=== PATIENT | female | born 1990 | race Caucasian/White ===

== ENCOUNTER 2017-04-22 10:10 | Emergency (ER) | payer BC ==
[2017-04-22] MEDS ORDERED: Sodium Chloride 0.9% 10 ML Syringe FLUSH PRN (11:24)
[2017-04-22] MEDS ORDERED: Alum Hydrox/Mag Hydrox/Simeth 30 ML, Lidocaine 2% 15 ML PO ONE ×2 (11:24)
[2017-04-22] MEDS ORDERED: Pantoprazole 40 MG Vial IVPUSH ONE (11:24)
[2017-04-22] MEDS ORDERED: Ondansetron 4 MG/2 ML SDV IVPUSH ONE (11:24)
[2017-04-22] MEDS ORDERED: Sodium Chloride 0.9% 1,000 ML IV SCH (11:30)
--- NOTE | 2017-04-22 11:32 | EDM.PDOC ---
ED HPI GENERAL MEDICAL PROBLEM - General Stated Complaint: BLACK STOOLS Time Seen by Provider: 04/22/17 11:10 Source of Information: Reports: Patient History Limitations: Reports: No Limitations - History of Present Illness INITIAL COMMENTS - FREE TEXT/NARRATIVE: the patient is a 26-year-old female who presents to the ED complaining of nausea , epigastric pain, poor appetite, and black stools. Patient states this past Tuesday she developed flulike symptoms with vomiting, nausea, and diarrhea. States on Tuesday the vomiting subsided but she remained nauseated with a poor appetite. States epigastric pain has persisted. describes as being constant with waxing and waning intensity with eating or drinking. Yesterday developed black stools with intermittent dizziness. She's had no presyncope or syncopal episodes. States initially she believes she had acid reflux. This subsided quickly. With taking Pepto-Bismol. She does utilize ibuprofen 800 mg once to two times a day for chronic back discomfort secondary to scoliosis. She has done this for quite some time. She did take Tylenol this morning with minimal relief. Currently the pain to her epigastric region is a 7/10. In addition she's currently on her menstrual cycle and has somewhat lower abdominal cramping with vaginal bleeding. No abnormalities noted. She denies being . She is sexually acitive and is not on any contraceptives. Patient has no additional past medical history nor is taking any medications other than [id number]. She denies any surgical history as well. Onset Date: 04/19/17 Duration: Constant, Waxing/Waning Location: Reports: Abdomen Quality: Reports: Ache, Pressure Severity: Moderate Improves with: Reports: None Worsens with: Reports: Eating, Other (palpation) Context: Denies: Sick Contact Associated Symptoms: Reports: Loss of Appetite, Malaise, Nausea/Vomiting. Denies: Chest Pain, Fever/Chills, Headaches, Shortness of Breath, Syncope, Weakness Treatments PROBATION SUPERVISOR: Reports: Acetaminophen, NSAIDS Middle Abdominal Pain Score (Numeric/FACES): 8 - Related Data Allergies Allergy/AdvReac Type Severity Reaction Status Date / Time No Known Allergies Allergy Verified 04/01/15 11:37 Home Meds: Home Meds Ondansetron [Zofran ODT] 4 mg PO Q6H PRN #10 tab.dis 04/22/17 [Rx] Sucralfate [Carafate] 1 gm PO QIDACANDBED #20 tablet 04/22/17 [Rx] Past Medical History - Past Surgical History Other Female Surgeries/Procedures: heavy and paiinful menstraul cycles Social & Family History - Tobacco Use Smoking Status *Q: Never Smoker - Recreational Drug Use Recreational Drug Use: No ED ROS GENERAL - Review of Systems Review Of Systems: See Below Constitutional: Reports: Malaise, Fatigue, Decreased Appetite. Denies: Fever, Chills Respiratory: Denies: Shortness of Breath, Cough, Sputum, Hemoptysis Cardiovascular: Denies: Chest Pain, Dyspnea on Exertion, Palpitations, PND, Syncope GI/Abdominal: Reports: Abdominal Pain, Black Stool, Diarrhea, Decreased Appetite , Nausea, Vomiting. Denies: Bloody Stool, Constipation, Distension, Flatus, Hematemesis, Melena : Reports: Other (currently on menses). Denies: Dysuria Musculoskeletal: Reports: Back Pain (chronic,history of scoliosis ) Skin: Reports: No Symptoms Neurological: Reports: Dizziness (intermittent with body position changes). Denies: Headache, Numbness, Syncope, Tingling ED EXAM, GI/ABD - Physical Exam Exam: See Below Exam Limited By: No Limitations General Appearance: Alert, WD/WN, No Apparent Distress Eyes: Bilateral: Normal Appearance Ears: Hearing Grossly Normal Nose: Normal Inspection Throat/Mouth: Normal Inspection, Normal Oropharynx, Normal Voice, No Airway Compromise Neck: Normal Inspection, Supple Respiratory/Chest: No Respiratory Distress, Lungs Clear, Normal Breath Sounds Cardiovascular: Normal Peripheral Pulses, Regular Rate, Rhythm GI/Abdominal: Normal Bowel Sounds, Soft, No Organomegaly, No Distention, Tenderness (epigastric). No: McBurney's Sign, Carrillo's Sign Back Exam: Normal Inspection. No: CVA Tenderness (L), CVA Tenderness (R) Extremities: Normal Inspection Neurological: Alert, Oriented, CN II-XII Intact, Normal Cognition Psychiatric: Normal Affect, Normal Mood Skin Exam: Warm, Dry, Intact, Normal Color Course - Vital Signs Last Recorded V/S: Last Vital Signs Temp 98.2 F 04/22/17 12:01 Pulse 80 04/22/17 12:01 Resp 16 04/22/17 12:01 BP 118/74 04/22/17 12:01 Pulse Ox 99 04/22/17 12:01 - Orders/Labs/Meds Orders: Active Orders 24 hr Category Date Time Status Fecal Occult Blood Collection [RC] ASDIRECTED Care 04/22/17 12:30 Active Peripheral IV Care [RC] . DIRECTED Care 04/22/17 11:25 Active Peripheral IV Insertion Adult [OM.PC] Stat Oth 04/22/17 11:24 Ordered Labs: Laboratory Tests 04/22/17 04/22/17 04/22/17 Range/Units 11:56 11:56 12:10 WBC 7.39 (3.98-10.04) K/mm3 RBC 4.72 (3.98-5.22) M/mm3 Hgb 11.7 (11.2-15.7) gm/L Hct 37.9 (34.1-44.9) % MCV 80.3 (79.4-94.8) fl MCH 24.8 L (25.6-32.2) pg MCHC 30.9 L (32.2-35.5) g/dl RDW Std Deviation 46.8 H (36.4-46.3) fL Plt Count 328 (182-369) K/mm3 MPV 9.5 (9.4-12.3) fl Neut % (Auto) 79.3 H (34.0-71.1) % Lymph % (Auto) 15.2 L (19.3-51.7) % Gray % (Auto) 4.5 L (4.7-12.5) % Eos % (Auto) 0.8 (0.7-5.8) Baso % (Auto) 0.1 (0.1-1.2) % Neut # (Auto) 5.86 (1.56-6.13) K/mm3 Lymph # (Auto) 1.12 L (1.18-3.74) K/mm3 Gray # (Auto) 0.33 (0.24-0.36) K/mm3 Eos # (Auto) 0.06 (0.04-0.36) K/mm3 Baso # (Auto) 0.01 (0.01-0.08) K/mm3 Sodium (136-145) mEq/L Potassium (3.5-5.1) mEq/L Chloride (98-107) mEq/L Carbon Dioxide (21-32) mEq/L Anion Gap (5-15) BUN (7-18) mg/dL Creatinine (0.55-1.02) mg/dL Est Cr Clr Drug Dosing mL/min Estimated GFR (MDRD) (>60) mL/min BUN/Creatinine Ratio (14-18) Glucose (74-106) mg/dL Calcium (8.5-10.1) mg/dL Total Bilirubin (0.2-1.0) mg/dL AST (15-37) U/L ALT (14-59) U/L Alkaline Phosphatase (46-116) U/L C-Reactive Protein (<1.0) mg/dL Total Protein (6.4-8.2) g/dl Albumin (3.4-5.0) g/dl Globulin gm/dL Albumin/Globulin Ratio (1-2) Lipase (73-393) U/L Urine Color Yellow (Yellow) Urine Appearance Clear (Clear) Urine pH 6.0 (5.0-8.0) Ur Specific [place] 1.020 (1.005-1.030) Urine Protein Negative (Negative) Urine Glucose (UA) Negative (Negative) Urine Ketones Negative (Negative) Urine Occult Blood 2+ H (Negative) Urine Nitrite Negative (Negative) Urine Bilirubin Negative (Negative) Urine Urobilinogen 0.2 (0.2-1.0) Ur Leukocyte Esterase Negative (Negative) Urine RBC 5-10 H (0-5) /hpf Urine WBC 0-5 (0-5) /hpf Ur Epithelial Cells 5-10 H (0-5) /hpf Urine Bacteria Few (FEW) /hpf Urine Mucus Moderate H (FEW) /hpf Urine HCG, Qual Negative (NEGATIVE) 04/22/17 Range/Units 12:10 WBC (3.98-10.04) K/mm3 RBC (3.98-5.22) M/mm3 Hgb (11.2-15.7) gm/L Hct (34.1-44.9) % MCV (79.4-94.8) fl MCH (25.6-32.2) pg MCHC (32.2-35.5) g/dl RDW Std Deviation (36.4-46.3) fL Plt Count (182-369) K/mm3 MPV (9.4-12.3) fl Neut % (Auto) (34.0-71.1) % Lymph % (Auto) (19.3-51.7) % Gray % (Auto) (4.7-12.5) % Eos % (Auto) (0.7-5.8) Baso % (Auto) (0.1-1.2) % Neut # (Auto) (1.56-6.13) K/mm3 Lymph # (Auto) (1.18-3.74) K/mm3 Gray # (Auto) (0.24-0.36) K/mm3 Eos # (Auto) (0.04-0.36) K/mm3 Baso # (Auto) (0.01-0.08) K/mm3 Sodium 141 (136-145) mEq/L Potassium 3.4 L (3.5-5.1) mEq/L Chloride 105 (98-107) mEq/L Carbon Dioxide 25 (21-32) mEq/L Anion Gap 14.4 (5-15) BUN 8 (7-18) mg/dL Creatinine 0.6 (0.55-1.02) mg/dL Est Cr Clr Drug Dosing 122.09 mL/min Estimated GFR (MDRD) > 60 (>60) mL/min BUN/Creatinine Ratio 13.3 L (14-18) Glucose 89 (74-106) mg/dL Calcium 8.7 (8.5-10.1) mg/dL Total Bilirubin 0.3 (0.2-1.0) mg/dL AST 19 (15-37) U/L ALT 25 (14-59) U/L Alkaline Phosphatase 94 (46-116) U/L C-Reactive Protein 1.3 H* (<1.0) mg/dL Total Protein 8.2 (6.4-8.2) g/dl Albumin 4.2 (3.4-5.0) g/dl Globulin 4.0 gm/dL Albumin/Globulin Ratio 1.1 (1-2) Lipase 100 (73-393) U/L Urine Color (Yellow) Urine Appearance (Clear) Urine pH (5.0-8.0) Ur Specific [place] (1.005-1.030) Urine Protein (Negative) Urine Glucose (UA) (Negative) Urine Ketones (Negative) Urine Occult Blood (Negative) Urine Nitrite (Negative) Urine Bilirubin (Negative) Urine Urobilinogen (0.2-1.0) Ur Leukocyte Esterase (Negative) Urine RBC (0-5) /hpf Urine WBC (0-5) /hpf Ur Epithelial Cells (0-5) /hpf Urine Bacteria (FEW) /hpf Urine Mucus (FEW) /hpf Urine HCG, Qual (NEGATIVE) Meds: Medications Discontinued Medications Generic Name Dose Route Start Last Admin Trade Name Freq PRN Reason Stop Dose Admin Al Hydroxide/Mg Hydroxide 30 0 ml 04/22/17 11:24 04/22/17 11:50 ml/ Lidocaine HCl 15 ml PO 04/22/17 11:25 45 ml ONETIME ONE Administration Sodium Chloride 1,000 mls @ 999 mls/hr 04/22/17 11:30 04/22/17 11:44 Normal Saline IV 999 mls/hr ASDIRECTED ABDIFATAH Administration Ondansetron HCl 4 mg 04/22/17 11:24 04/22/17 11:46 Zofran IVPUSH 04/22/17 11:25 4 mg ONETIME ONE Administration Pantoprazole Sodium 40 mg 04/22/17 11:24 04/22/17 11:48 Protonix Iv IVPUSH 04/22/17 11:25 40 mg ONETIME ONE Administration Sodium Chloride 10 ml 04/22/17 11:24 04/22/17 11:52 Saline Flush FLUSH 10 ml ASDIRECTED PRN Administration Keep Vein Open Sucralfate 1 gm 04/22/17 12:23 04/22/17 12:37 Carafate PO 04/22/17 12:24 1 gm ONETIME ONE Administration - Re-Assessments/Exams Free Text/Narrative Re-Assessment/Exam: 04/22/17 11:33 Ordered peripheral IV with normal saline 999 mm/h, GI cardiac, Zofran, and Protonix. Initial labs include CBC, CRP, chem 14, hCG, lipase, and UA. Will obtain hemoccult. 04/22/17 12:19 Hemoccult negative. 04/22/17 12:23 Reassessment, patient states epigastric pain has improved. Currently mild in nature. Ordered carafate 1 gram PO. 04/22/17 13:11labview: Sodium 141, potassium 3.4, creatinine 0.6, CRP 1.3, lipase 100, white blood cell count 7.39, hemoglobin 7.7, platelets 220, N% 79.3 , neutrophil #5.6, UA positive for blood, patient's crit had a menstrual cycle. HCG was negative 04/22/17 13:16 Reassessment, patient states epigastric pain has improved with the GI cocktail and Carafate. Nausea has dissipated as well. She's had no bowel movements while in the ED. She is ready to be discharged home. I did offer to obtain a CT abdomen and pelvis to further delineate cause of epigastric discomfort. I highly suspect this is related to gastritis due chronic NSAID use with recent gastroenteritis infection worsening the epigastric discomfort 2nd vomiting. She has no blood in her stool and hemoccult was negative. Lab work did not reveal any concerning findings. Patient agrees with plan and has opted not to obtain CT abdomen and pelvis. Will discharge patient home with instructions and prescriptions as provided. Departure - Departure Time of Disposition: 13:18 Disposition: Home, Self-Care 01 Condition: good Clinical Impression: Gastroenteritis Gastritis Qualifiers: Gastritis type: unspecified gastritis Chronicity: acute Gastritis bleeding: without bleeding Qualified Code(s): K29.00 - Acute gastritis without bleeding - Discharge Information Prescriptions: Ondansetron [Zofran ODT] 4 mg PO Q6H PRN #10 tab.dis PRN Reason: Nausea/Vomiting Sucralfate [Carafate] 1 gm PO QIDACANDBED #20 tablet Instructions: Viral Gastroenteritis, Adult, [id number], Abdominal Pain, Adult , [id number], Nausea and Vomiting, Adult, [id number] Referrals: Reina Jo PA [Physician Reclamation Furnace Operator] - Forms: ED Department Discharge Additional Instructions: Take the medications as prescribed. Will start you on prilosec 40mg every a.m. for 2 wks. Can also utilize zantac 150 at night if symptoms not completely resolved. Refrain from utilizing nsaids. Stick with clear liquid diet for the next 24 hrs. Advance to low residue diet for 48 hrs. Thereafter advance to normal diet. Refrain from any spicy foods, caffeine, chocolate, or other aggravating foods. Followup with PCP at [facility] this coming Tuesday/Tuesday if symptomsh ave not completely resolved. Push the fluids: gatorade, powerade, and/or pedialyte. Return to the E.D. for any new or worsening symptoms. - My Orders Last 24 Hours: My Active Orders 04/22/17 11:24 Peripheral IV Insertion Adult [OM.PC] Stat 04/22/17 11:25 Peripheral IV Care [RC] . DIRECTED 04/22/17 12:30 Fecal Occult Blood Collection [RC] ASDIRECTED - Assessment/Plan Last 24 Hours: My Active Orders 04/22/17 11:24 Peripheral IV Insertion Adult [OM.PC] Stat 04/22/17 11:25 Peripheral IV Care [RC] . DIRECTED 04/22/17 12:30 Fecal Occult Blood Collection [RC] ASDIRECTED
[2017-04-22 12:05] VITALS: BP 118/74
[2017-04-22] MEDS ORDERED: Sucralfate Suspension 1 GM/10 ML Cup PO ONE (12:23)
== END 2017-04-22 13:55 | disposition home or self-care (01) ==
LOC: JD.ED 10:10
DX: K52.9 Noninfective gastroenteritis and colitis, unspecified (principal); K29.00 Acute gastritis without bleeding
CPT/HCPCS: 36415; 80053; 81001; 81025; 82270; 83690; 85025; 86140; 96361; 96374; 96375; 99284; A9270; C9113; J2405; J7040; J7050

== ENCOUNTER 2017-06-09 18:14 | Emergency (ER) | payer BC ==
[2017-06-09 18:37] VITALS: BP 121/69
--- NOTE | 2017-06-09 19:29 | EDM.PDOC ---
ED HPI GENERAL MEDICAL PROBLEM - General Chief Complaint: ENT Problem Stated Complaint: FEVER/THROAT IRRITATION Time Seen by Provider: 06/09/17 19:00 Source of Information: Reports: Patient, Family (Mother, sister), RN Notes Reviewed History Limitations: Reports: No Limitations - History of Present Illness INITIAL COMMENTS - FREE TEXT/NARRATIVE: The patient states that she has had a sore throat and right ear pain since yesterday. Mom believes that there is a purulent exudate from the tonsils. The patient has been running a low-grade fever today, with a Tmax of 101.6. Here in the ED, her temperature is 100.2 degrees. She has been gargling with salt water and taking ibuprofen, without significant relief. No prior similar symptoms. The patient is not aware of any exposure to someone with strep throat. The patient does not have a PCP. Throat Pain Score (Numeric/FACES): 10 - Related Data Allergies Allergy/AdvReac Type Severity Reaction Status Date / Time No Known Allergies Allergy Verified 04/01/15 11:37 Past Medical History Musculoskeletal History: Reports: Other (See Below) (Scoliosis) Social & Family History - Family History Family Medical History: Noncontributory - Tobacco Use Smoking Status *Q: Never Smoker Second Hand Smoke Exposure: No - Caffeine Use Caffeine Use: Reports: Coffee - Alcohol Use Alcohol Use History: Yes Alcohol Use Frequency: Socially - Recreational Drug Use Recreational Drug Use: No - Living Situation & Occupation Living situation: Reports: Single, Alone 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) ED ROS ENT - Review of Systems Review Of Systems: See Below Constitutional: Reports: No Symptoms HEENT: Reports: No Symptoms Respiratory: Reports: No Symptoms Cardiovascular: Reports: No Symptoms Endocrine: Reports: No Symptoms GI/Abdominal: Reports: No Symptoms : Reports: No Symptoms Musculoskeletal: Reports: No Symptoms Skin: Reports: No Symptoms Neurological: Reports: No Symptoms Psychiatric: Reports: No Symptoms Hematologic/Lymphatic: Reports: No Symptoms Immunologic: Reports: No Symptoms ED EXAM, ENT - Physical Exam Exam: See Below Exam Limited By: No Limitations General Appearance: Alert, WD/WN, Mild Distress (Appears uncomfortable) Eye Exam: Bilateral Eye: Normal Inspection Ears: Normal External Exam, Normal Canal, Hearing Grossly Normal, Normal TMs Nose: Normal Inspection, Normal Mucousa, No Blood Mouth/Throat: Normal Inspection, Normal Gums, Normal Lips, Normal Teeth, Other ( Foodstuff is noted in the right tonsillar crypts, but no purulent exudate or pseudomembranes. Tonsils are not swollen. No significant erythema to the oropharynx. No oropharyngeal erythema or swelling, to suggest peritonsillar cellulitis or abscess.) Head: Atraumatic, Normocephalic Neck: Normal Inspection, Supple, Non-Tender, Full Range of Motion, Other (The patient is tender to palpation submandibularly, but no palpable lymphadenopathy. ). No: Lymphadenopathy (L), Lymphadenopathy (R) Course - Vital Signs Last Recorded V/S: Last Vital Signs Temp 37.9 C 06/09/17 18:34 Pulse 124 H 06/09/17 18:34 Resp 16 06/09/17 18:34 BP 121/69 06/09/17 18:34 Pulse Ox 98 06/09/17 18:34 - Orders/Labs/Meds Orders: Active Orders 24 hr Category Date Time Status CULTURE STREP A CONFIRMATION [] Stat Lab 06/09/17 19:06 Results STREP SCRN A RAPID W CULT CONF [RM] Stat Lab 06/09/17 19:06 Results - Re-Assessments/Exams Free Text/Narrative Re-Assessment/Exam: 06/09/17 20:01 Rapid strep test results discussed with the patient and her family. Her strep test is negative, indicating that she is suffering from viral pharyngitis. I am recommending warm saltwater gargles, Chloraseptic spray, Tylenol, or ibuprofen. I explained that antibiotics do not help with these types of viral illnesses. On physical examination, her throat looks fairly benign. I do not see any suggestion of peritonsillar cellulitis or abscess, however, the patient is complaining that it hurts a great deal, and that it is very sore to swallow. I am recommending that if her symptoms worsen, that she return for reevaluation. Departure - Departure Time of Disposition: 20:02 Disposition: Home, Self-Care 01 Condition: Good Clinical Impression: Viral pharyngitis - Discharge Information Referrals: PCP,None [Primary Care Provider] - Lay Cazares PA-C [Physician Tube Backer] - Forms: ED Department Discharge Additional Instructions: You were seen in the emergency room for a sore throat and right ear pain Workup in the ER included a rapid strep test, which returned negative. You do not have strep throat. Your pain is MOST LIKELY due to viral pharyngitis. Unfortunately, there are no anti-viral medicines that can be given to treat this. It will have to run its course. We recommend warm salt water gargles, Chloraseptic spray, Tylenol, or ibuprofen. Your symptoms should improve over the next few days. If your throat is still sore by 06/13/2017, please follow-up with Lay Cazares in the clinic. If your symptoms worsen, please return to the ER for reevaluation. - My Orders Last 24 Hours: My Active Orders 06/09/17 19:06 CULTURE STREP A CONFIRMATION [RM] Stat STREP SCRN A RAPID W CULT CONF [RM] Stat - Assessment/Plan Last 24 Hours: My Active Orders 06/09/17 19:06 CULTURE STREP A CONFIRMATION [RM] Stat STREP SCRN A RAPID W CULT CONF [RM] Stat
== END 2017-06-09 20:10 | disposition home or self-care (01) ==
LOC: JD.ED 18:14
DX: J02.8 Acute pharyngitis due to other specified organisms (principal); B97.89 Other viral agents as the cause of diseases classified elsewhere
CPT/HCPCS: 87081; 87430; 99282; 99283

== ENCOUNTER 2019-02-06 20:27 | Emergency (ER) | payer BC ==
[2019-02-06 20:39] VITALS: BP 138/85
[2019-02-06] MEDS ORDERED: Acetaminophen 325 MG Tab PO ONE (21:14)
[2019-02-06] MEDS ORDERED: Ketorolac 60 MG/2 ML SDV IM ONE (21:14)
--- NOTE | 2019-02-06 21:16 | EDM.PDOC ---
ED HPI GENERAL MEDICAL PROBLEM - General Chief Complaint: Upper Extremity Injury/Pain Stated Complaint: PAIN IN BODY Time Seen by Provider: 02/06/19 20:42 Source of Information: Reports: Patient, RN Notes Reviewed - History of Present Illness INITIAL COMMENTS - FREE TEXT/NARRATIVE: 28-year-old female had onset of chills, possible fever 2 days ago that it continued yesterday and today. Chills achy all over but especially upper arms. She had more severe headache earlier today and yesterday now somewhat better. She does have some nasal congestion occasional coughing no major sore throat. Bilateral Arm Pain Score (Numeric/FACES): 10 - Related Data Allergies Allergy/AdvReac Type Severity Reaction Status Date / Time No Known Allergies Allergy Verified 02/06/19 20:33 Home Meds: Home Meds Escitalopram [Lexapro] 20 mg PO QAM 02/06/19 [History] Past Medical History Musculoskeletal History: Reports: Back Pain, Chronic Other Musculoskeletal History: scoliosis Psychiatric History: Reports: Anxiety, Depression - Past Surgical History GI Surgical History: Reports: Appendectomy Other Female Surgeries/Procedures: heavy and paiinful menstraul cycles Social & Family History - Family History Family Medical History: Noncontributory - Tobacco Use Smoking Status *Q: Never Smoker Second Hand Smoke Exposure: No - Caffeine Use Caffeine Use: Reports: Soda - Recreational Drug Use Recreational Drug Use: No - Living Situation & Occupation Living situation: Reports: Single, Alone 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 Denies: Shortness of Breath Cardiovascular: Denies: Chest Pain GI/Abdominal: Denies: Abdominal Pain, Diarrhea, Vomiting Musculoskeletal: Reports: Other (Generalized achiness, especially both arms) Skin: Denies: Rash Neurological: Reports: Headache. Denies: Numbness, Tingling, Weakness ED EXAM, GENERAL - Physical Exam Exam: See Below General Appearance: Alert, Mild Distress Eye Exam: Bilateral Eye: PERRL Ears: Normal External Exam, Normal Canal Nose: Normal Inspection Throat/Mouth: Normal Inspection, Normal Oropharynx Head: No: Facial Swelling Neck: Supple, Full Range of Motion Respiratory/Chest: No Respiratory Distress, Lungs Clear, Normal Breath Sounds Cardiovascular: Regular Rate, Rhythm GI/Abdominal: Soft, Non-Tender Extremities: Normal Inspection, Normal Range of Motion Skin Exam: Warm, Dry, Normal Color Course - Vital Signs Last Recorded V/S: Last Vital Signs Temp 98.3 F 02/06/19 20:34 Pulse 89 02/06/19 20:34 Resp 18 02/06/19 20:34 BP 138/85 02/06/19 20:34 Pulse Ox 100 02/06/19 20:34 - Orders/Labs/Meds Orders: Active Orders 24 hr Category Date Time Status TANNER W/REFLEX [REF] Stat Lab 02/06/19 21:49 Ordered CBC WITH AUTO DIFF [HEME] Stat Lab 02/06/19 21:49 Ordered RHEUMATOID FACTOR SCREEN [CHEM] Stat Lab 02/06/19 21:49 Ordered SEDIMENTATION RATE AUTO [HEME] Stat Lab 02/06/19 21:49 Ordered Meds: Medications Discontinued Medications Generic Name Dose Route Start Last Admin Trade Name Chucho PRN Reason Stop Dose Admin Acetaminophen 975 mg 02/06/19 21:14 02/06/19 21:18 Tylenol PO 02/06/19 21:15 975 mg NOW ONE Administration Ketorolac Tromethamine 60 mg 02/06/19 21:14 02/06/19 21:19 Toradol IM 02/06/19 21:15 60 mg ONETIME ONE Administration - Re-Assessments/Exams Free Text/Narrative Re-Assessment/Exam: 02/06/19 21:51 Influenza screen did come back negative. Other is now in room and she is asking if I can check her for "lupus". She has had a lot of difficulty with muscle and joint discomfort for some time. At times her wrists are very achy. She has a lot of back discomfort comes and goes. Mother states that inflammatory illness does run in the family, especially her father. He states at times her knees also give her difficulty. A it is mostly in her back and into both arms. Seems to be more muscular than joint related today and then also was noted fever chills for the last 2 days. I have put an order in for CBC, which were a factor , sedimentation rate, a. I am not going to make patient wait for results but rather have her follow-up at the clinic in about 2 days for results. Have given Tylenol and Toradol and that is helping. He is requesting something to help her sleep, states she has not been able to sleep well at all the last 2 nights. We' ll send home 1 mg of Ativan to take half milligram tonight, half milligram tomorrow night. Departure - Departure Time of Disposition: 21:54 Disposition: Home, Self-Care 01 Condition: Fair Clinical Impression: Viral syndrome, Myalgia Back pain Qualifiers: Back pain location: thoracic back pain Chronicity: acute Back pain laterality: right Qualified Code(s): M54.6 - Pain in thoracic spine - Discharge Information Referrals: Jaqueline Cummings MD [Primary Care Provider] - Forms: ED Department Discharge Additional Instructions: Rest, you may alternate Tylenol and ibuprofen as needed. You may also alternate heat and ice packs as needed to areas of back discomfort. Multiple lab studies to check inflammatory markers have been ordered. Follow up clinic in 2-3 days for results. Take one half tablet lorazepam this evening for muscle and nerve relaxation, to help you sleep. You may take the other half tablet tomorrow evening if needed. - My Orders Last 24 Hours: My Active Orders 02/06/19 21:49 TANNER W/REFLEX [REF] Stat CBC WITH AUTO DIFF [HEME] Stat RHEUMATOID FACTOR SCREEN [CHEM] Stat SEDIMENTATION RATE AUTO [HEME] Stat - Assessment/Plan Last 24 Hours: My Active Orders 02/06/19 21:49 TANNER W/REFLEX [REF] Stat CBC WITH AUTO DIFF [HEME] Stat RHEUMATOID FACTOR SCREEN [CHEM] Stat SEDIMENTATION RATE AUTO [HEME] Stat
[2019-02-06] MEDS ORDERED: LORazepam 1 MG Tab PO ONE (21:54)
== END 2019-02-06 22:10 | disposition home or self-care (01) ==
LOC: JD.ED 20:27
DX: B34.9 Viral infection, unspecified (principal); M54.6 Pain in thoracic spine; F41.9 Anxiety disorder, unspecified; F32.9 Major depressive disorder, single episode, unspecified; Z79.899 Other long term (current) drug therapy
CPT/HCPCS: 36415; 85025; 85652; 86038; 86430; 87804; 96372; 99283; A9270; J1885